=== PATIENT | female | born 1945 | race Caucasian/White ===

== ENCOUNTER 2017-10-23 06:40 | Day surgery (SDC) | payer BC, MEDICARE ==
[~2017-10-23] VITALS: Ht 170.2 cm; Wt 90.7 kg
[~2017-10-23 06:40] MED LIST: ELIQUIS2.5 MG PO; FLUT1DIS5; METO25ER PO; METO50ER; RXHYDACE PO; TIOT18; XARELTO20 MG PO
== END 2017-10-23 09:21 | disposition home or self-care (01) ==
LOC: ORSCSDS 06:40
PROVIDERS: Internal Medicine Gastroenterology
PROC: 0DBP8ZX Excision of Rectum, Via Natural or Artificial Opening Endoscopic, Diagnostic (ICD-10-PCS; principal; 2017-10-23 08:00)
PROC: 0DBN8ZX Excision of Sigmoid Colon, Via Natural or Artificial Opening Endoscopic, Diagnostic (ICD-10-PCS; principal; 2017-10-23 08:00)
PROC: 0DBH8ZX Excision of Cecum, Via Natural or Artificial Opening Endoscopic, Diagnostic (ICD-10-PCS; principal; 2017-10-23 08:00)
PROC: 0DBL8ZX Excision of Transverse Colon, Via Natural or Artificial Opening Endoscopic, Diagnostic (ICD-10-PCS; principal; 2017-10-23 08:00)
DX: Z12.11 Encounter for screening for malignant neoplasm of colon (principal); D12.0 Benign neoplasm of cecum; D12.2 Benign neoplasm of ascending colon; D12.3 Benign neoplasm of transverse colon; D12.5 Benign neoplasm of sigmoid colon; K64.8 Other hemorrhoids; I10 Essential (primary) hypertension; J44.9 Chronic obstructive pulmonary disease, unspecified; M79.7 Fibromyalgia; I48.91 Unspecified atrial fibrillation; Z87.891 Personal history of nicotine dependence; Z79.01 Long term (current) use of anticoagulants; Z79.899 Other long term (current) drug therapy
CPT/HCPCS: 88305; J0330; J1980; J2405

== ENCOUNTER → 2018-01-04 | Outpatient (CLI) | payer BC, MEDICARE ==
[2018-01-04 17:47] LABS: BASOPHILS ABSOLUTE AUTO 0.03 K/mm3 (0.00-0.23); BASOPHILS PERCENT AUTO 0 % (0-2); EOSINOPHILS ABSOLUTE AUTO 0.51 K/mm3 (0.00-0.68); EOSINOPHILS PERCENT AUTO 8 % (0-6); Hematocrit 41.1 % (33.0-51.0); Hemoglobin 13.5 g/dL (11.5-16.0); IMMATURE GRAN ABSOLUTE AUTO 0.02 K/mm3 (0.00-0.10); IMMATURE GRAN PERCENT AUTO 0 % (0-1); LYMPHOCYTES PERCENT AUTO 18 % (21-46); MONOCYTES PERCENT AUTO 9 % (4-13); Mean Corpuscular HGB 30.6 pg (26.0-34.0); Mean Corpuscular HGB Conc 32.8 g/dL (31.5-36.5); Mean Corpuscular Volume 93 fL (80-100); Mean Platelet Volume 11.3 fL (9.1-12.4); NEUTROPHILS ABSOLUTE AUTO 4.43 K/mm3 (1.96-9.15); NEUTROPHILS PERCENT AUTO 65 % (41-73); Platelet Count 182 K/mm3 (150-400); RDW Coefficient Variation 12.9 % (11.7-14.2); RDW Standard Deviation 44.1 fL (35.1-46.3); Red Blood Cell Count 4.41 M/mm3 (3.80-5.20); White Blood Cell Count 6.79 K/mm3 (4.00-11.30)
[2018-01-04 17:58] LABS: Anion Gap 12 mmol/L (6-16); Blood Urea Nitrogen 16 mg/dL (8-24); Bun/Creatinine Ratio 21.9 (12.0-20.0); CO2, Blood 27 mmol/L (21-32); Calcium, Blood 9.5 mg/dL (8.5-10.1); Chloride, Blood 103 mmol/L (98-108); Creatinine, Blood 0.73 mg/dL (0.40-1.00); Glomerular Filtration Rate >60 (60-); Glucose, Blood 106 mg/dL (70-99); Potassium, Blood 3.7 mmol/L (3.5-5.5); Sodium, Blood 142 mmol/L (136-145)
== END | disposition home or self-care (01) ==
LOC: LAB EV 17:24 → LAB SHORT 17:24
PROVIDERS: Nurse Practitioner Family
DX: J40 Bronchitis, not specified as acute or chronic (principal)
CPT/HCPCS: 80048; 85025

== ENCOUNTER 2018-06-13 07:47 | Emergency (ER) | payer BC, MEDICARE ==
[~2018-06-13] VITALS: Ht 167.6 cm; Wt 86.2 kg
== END 2018-06-13 08:50 | disposition home or self-care (01) ==
LOC: ER 07:47
DX: M79.601 Pain in right arm (principal); Z91.018 Allergy to other foods; Z79.899 Other long term (current) drug therapy; J44.9 Chronic obstructive pulmonary disease, unspecified; I48.91 Unspecified atrial fibrillation
CPT/HCPCS: 99283

== ENCOUNTER → 2019-05-07 | Outpatient (CLI) | payer BC, MEDICARE | END | disposition home or self-care (01) | LOC: PLD 10:24 → LAB SHORT 10:24 | DX: D48.5 Neoplasm of uncertain behavior of skin (principal) | CPT/HCPCS: 88305 ==

== ENCOUNTER 2020-05-19 07:46 | Day surgery (SDC) | payer BC, MEDICARE ==
[~2020-05-19 07:46] MED LIST changes: -FLUT1DIS5; +FLUT1DIS5 INH; -TIOT18; +TIOT18 INH
[2020-05-19] MEDS ORDERED: ALBU2.5V5 INH (14:41)
[2020-05-19] MEDS ORDERED: ALBU90OI INH (14:42)
[2020-05-19] MEDS ORDERED: Brovana15 MCG/2 M INH (14:43)
[2020-05-19] MEDS ORDERED: NARCAN4 M1 (14:45)
[2020-05-19] MEDS ORDERED: BUDE.25 INH (14:46)
[2020-05-19] MEDS ORDERED: FURO40 PO (14:48)
[2020-05-19] MEDS ORDERED: IPRAT-ALBUT 0.5-3 ML INH (14:50)
[2020-05-19] MEDS ORDERED: ALBU90OI6 INH (14:51)
[2020-05-19] MEDS ORDERED: POTA20PAC PO (14:51)
[2020-05-19] MEDS ORDERED: Percocet 5-3251 EACH PO (14:55)
[2020-05-19] MEDS ORDERED: PRESERVISION A1 EAC1 PO (14:55)
== END 2020-05-19 15:26 | disposition home or self-care (01) ==
LOC: ATC 07:46
DX: R52 Pain, unspecified (principal); E86.0 Dehydration; C34.31 Malignant neoplasm of lower lobe, right bronchus or lung; C79.51 Secondary malignant neoplasm of bone; C77.0 Secondary and unspecified malignant neoplasm of lymph nodes of head, face and neck; Z91.012 Allergy to eggs; Z91.018 Allergy to other foods
CPT/HCPCS: 96361; 96374; 96375; J1885; J2405; J7030